=== PATIENT | female | born 1995 | race Caucasian/White ===

== ENCOUNTER 2019-05-20 15:49 | Outpatient (CLI) | payer OTHER ==
--- NOTE | 2019-05-20 16:28 | ULT ---
LEFT BREAST DIAGNOSTIC ULTRASOUND: 05/20/19 INDICATIONS: Left breast pain. COMPARISON: None. FINDINGS: No suspicious sonographic abnormality seen in the left breast 12 o'clock, 3 o'clock, 6 o'clock, 9 o'c lock or retroareolar regions that corresponds to the left breast pain. IMPRESSION: No suspicious sonographic abnormality in the region of left breast pain. Refer this patient back to o [facility] clinician. Negative imaging should never deter biopsy if findings on clinical exam are suspic ious. BIRADS 1: Negative Routine annual screening mammography (for women over age 40) POS: OFF
== END 2019-05-20 15:50 | disposition home or self-care (01) ==
LOC: BICULT 15:49
PROVIDERS: ATTEND Nurse Practitioner Family
DX: N64.4 Mastodynia (principal)

== ENCOUNTER 2022-07-19 20:58 | Emergency (ER) | payer BC, OTHER ==
[2022-07-19 21:36] LABS: #Eosinphils 0.3 thou/uL (0.0-0.7); #Lymphocytes 2.7 thou/uL (1.20-3.40); #Monocytes 0.6 thou/uL (0.11-0.59); #Neutrophils 5.1 thou/uL (1.40-6.50); %Basophils 0.5 % (0.0-1.0); %Eosinophils 3.7 % (0.0-10.0); %Lymphocytes 30.8 % (21.0-51.0); %Monocytes 7.2 % (0.0-10.0); %Neutrophils 57.9 % (42.0-75.0); Hemoglobin 14.6 g/dL (12.0-16.0); Mean Corpuscular Hemoglobin 30.8 pg (27.0-31.0); Mean Corpuscular Volume 87.9 fl (78.0-98.0); Mean Platelet Volume 7.5 fL (7.4-10.4); Platelet Count 313 10x3/uL (130-400); RBC Distribution Width 11.7 % (11.5-14.5); Red Blood Cell (RBC) Count 4.75 mill/uL (4.20-5.40); White Blood Cell (WBC) Count 8.9 10x3/uL (4.8-10.8)
[2022-07-19 21:56] LABS: ALT (SGPT) 16 U/L (8-55); AST (SGOT) 18 U/L (5-34); Albumin 4.5 g/dL (3.5-5.0); Alkaline Phosphatase 65 U/L (40-110); Anion Gap 13 mmol/L (10-20); BUN (Urea Nitrogen) 11 mg/dL (7.0-18.7); Bilirubin, Total 0.4 mg/dL (0.2-1.2); Calc. Creatinine Clearance 0 mL/min (70-130); Calcium 9.4 mg/dL (7.8-10.44); Carbon Dioxide 22 mmol/L (22-29); Chloride 106 mmol/L (98-107); Estimated GFR 104; Globulin 3.4 g/dL (2.4-3.5); Glucose 115 mg/dL (70-105); Magnesium 1.8 mg/dL (1.6-2.6); Potassium 3.7 mmol/L (3.5-5.1); Protein, Total 7.9 g/dL (6.0-8.3); Sodium 137 mmol/L (136-145)
[2022-07-19] MEDS ORDERED: Dexamethasone 4 mg/ml Vial ONE (22:39)
[2022-07-19] MEDS ORDERED: Mag-Al 1200 mg/1200 mg/30 ML UDCUP ONE (22:39)
[2022-07-19] MEDS ORDERED: Lidocaine Viscous Sol 2% 15 ml UD Cup ONE (22:39)
[2022-07-19 22:41] LABS: BHCG - Serum Negative (NEGATIVE); Pregs Control Background? CLEAR/WHITE (CLR/WHITE); Pregs Control Bar Appear? YES (CONTROL BAR)
[2022-07-20] MEDS ORDERED: Iopamidol-370 76% 500 ML 1 ML ONE (14:34)
== END 2022-07-20 01:39 | disposition home or self-care (01) ==
LOC: ERS 20:58
DX: R07.9 Chest pain, unspecified (principal)
CPT/HCPCS: 36415; 70491; 71045; 80053; 83735; 84443; 84484; 84703; 85025; 93005; J1100; Q9967